=== PATIENT | female | born 1960 | race Caucasian/White ===

== ENCOUNTER 2018-04-27 10:45 | Outpatient (CLI) | payer OTHER ==
--- NOTE | 2018-04-27 12:42 | RAD ---
RADIOGRAPH SACRUM AND COCCYX THREE VIEWS: History: 58-year-old female with coccydynia. Comparison: None. FINDINGS: Sacral arcuate lines are preserved. No gross evidence of destruction or displaced sacrococcygeal frac ture identified. IMPRESSION: Negative. POS: [facility]
== END 2018-04-27 10:46 | disposition home or self-care (01) ==
LOC: RAD 10:45
PROVIDERS: ATTEND Nurse Practitioner Family
DX: M53.3 Sacrococcygeal disorders, not elsewhere classified (principal)
CPT/HCPCS: 72220

== ENCOUNTER 2018-12-23 14:34 | Emergency (ER) | payer OTHER ==
[2018-12-23] MEDS ORDERED: Ketorolac Tromethamine 30 MG/ML VIAL ONE (14:59)
[2018-12-23] MEDS ORDERED: Diazepam 5 MG TAB ONE (15:06)
== END 2018-12-23 15:56 | disposition home or self-care (01) ==
LOC: ERS 14:34
DX: M62.830 Muscle spasm of back (principal); I10 Essential (primary) hypertension; Z79.899 Other long term (current) drug therapy
CPT/HCPCS: 96372; 99283; J1885

== ENCOUNTER 2019-04-03 09:15 | Outpatient (CLI) | payer OTHER ==
--- NOTE | 2019-04-03 09:41 | RAD ---
EXAM: 3 views of the sacrum/coccyx HISTORY: Sacral/coccygeal pain COMPARISON: 04/27/2018 FINDINGS: 3 views of the sacrum/coccyx shows no evidence of displaced sacral or coccygeal fracture. T he sacral alae are symmetric. The sacroiliac joints and pubic symphysis are unremarkable. IMPRESSION: No evidence of sacral or coccygeal fracture.
--- NOTE | 2019-04-03 10:14 | RAD ---
EXAM: 2 views of the left knee HISTORY: Knee pain COMPARISON: None FINDINGS: No knee effusion is seen. There is no evidence of acute fracture or dislocation. No signifi cant degenerative changes are seen. No soft tissue swelling is present. IMPRESSION: No evidence of acute osseous abnormality.
== END 2019-04-03 09:16 | disposition home or self-care (01) ==
LOC: RAD 09:15
PROVIDERS: ATTEND Nurse Practitioner Family
DX: M25.562 Pain in left knee (principal); M53.3 Sacrococcygeal disorders, not elsewhere classified
CPT/HCPCS: 72220

== ENCOUNTER 2019-05-24 13:46 | Outpatient (CLI) | payer OTHER ==
--- NOTE | 2019-05-24 14:59 | MRI ---
EXAM: LEFT KNEE MRI WITHOUT IV CONTRAST: 05/24/19 HISTORY: Left knee pain without significant injury. Internal derangement of left knee. FINDINGS: There is some suprapatellar recess joint distention. Fairly extensive complex tear of the medial meni scus extending from the posterior root into the mid body region with prominent irregular vertical com ponent as well as a horizontal component. Mild to moderate medial compartment cartilage loss. There i s some medial subluxation of the body of the medial meniscus with some very subtle subchondral signal of the medial aspect of the medial tibial plateau, probably some very subtle stress related change. Lateral meniscus appears unremarkable. Anterior and posterior cruciate ligaments, collateral ligament complexes, and quadriceps and patellar tendons appear intact. IMPRESSION: Fairly extensive complex tear medial meniscus from the posterior root into the body. Evidence for sup rapatellar joint fluid. Small subchondral focus of minimal increased signal of the medial aspect of t he medial tibial plateau probably related to minimal stress related change. No evidence for other sig nificant acute internal derangement. POS: T[facility]
== END 2019-05-24 13:47 | disposition home or self-care (01) ==
LOC: TBSIIMAG 13:46
PROVIDERS: ATTEND Orthopaedic Surgery
DX: M23.92 Unspecified internal derangement of left knee (principal); S83.232A Complex tear of medial meniscus, current injury, left knee, initial encounter; R93.7 Abnormal findings on diagnostic imaging of other parts of musculoskeletal system

== ENCOUNTER 2019-07-05 10:39 | Outpatient (CLI) | payer OTHER ==
[2019-07-05 11:50] LABS: #Basophils 0.1 thou/uL (0.0-0.2); #Eosinphils 0.1 thou/uL (0.0-0.7); #Lymphocytes 1.5 thou/uL (1.20-3.40); #Monocytes 0.5 thou/uL (0.11-0.59); #Neutrophils 4.2 thou/uL (1.40-6.50); %Basophils 0.9 % (0.0-1.0); %Eosinophils 1.9 % (0.0-10.0); %Lymphocytes 23.7 % (21.0-51.0); %Monocytes 7.5 % (0.0-10.0); %Neutrophils 66.1 % (42.0-75.0); Mean Corpuscular HGB CONC 32.7 g/dL (32.0-36.0); Mean Corpuscular Hemoglobin 27.3 pg (27.0-31.0); Mean Corpuscular Volume 83.6 fL (78.0-98.0); Mean Platelet Volume 7.3 fL (7.4-10.4); Platelet Count 272 thou/uL (130-400); RBC Distribution Width 13.8 % (11.5-14.5); White Blood Cell (WBC) Count 6.4 thou/uL (4.8-10.8)
[2019-07-05 12:12] LABS: Anion Gap 12 mmol/L (10-20); BUN (Urea Nitrogen) 12 mg/dL (9.8-20.1); Calc. Creatinine Clearance 0 mL/min (70-130); Calcium 9.4 mg/dL (7.8-10.44); Carbon Dioxide 25 mmol/L (23-31); Chloride 108 mmol/L (98-107); Estimated GFR-MDRD 73; Glucose 86 mg/dL (80-115); Potassium 4.2 mmol/L (3.5-5.1); Sodium 141 mmol/L (136-145)
[2019-07-05 18:25] LABS: SARS-CoV-2 MS2 Positive; SARS-CoV-2 N Gene Negative; SARS-CoV-2 S Gene Negative; SARS-CoV-2 orf1ab Negative
== END 2019-07-05 10:40 | disposition home or self-care (01) ==
LOC: LABBT 10:39
PROVIDERS: ATTEND Orthopaedic Surgery
DX: Z01.812 Encounter for preprocedural laboratory examination (principal); Z11.59 Encounter for screening for other viral diseases; M23.92 Unspecified internal derangement of left knee
CPT/HCPCS: 80048; 85025; 87635; U0003

== ENCOUNTER 2019-07-10 05:51 | Day surgery (SDC) | payer OTHER ==
[2019-07-05 10:51] VITALS: BMI 30.9
--- NOTE | 2019-07-09 10:09 | HP ---
HISTORY OF PRESENT ILLNESS: The patient is a 59-year-old female with a several month history of left knee pain and popping, was seen to develop after helping her recover from total knee surgery. There is no specific injury. She had persistent symptoms despite restriction of activities and use of anti-inflammatory medications. PAST MEDICAL HISTORY: The patient is otherwise in good health. History of hypertension and chronic low back pain. CURRENT MEDICATIONS: Include, 1. Melatonin. 2. Iron. 3. Robaxin. 4. Tylenol. ALLERGIES: NO KNOWN ALLERGIES. FAMILY HISTORY: Otherwise unremarkable. SOCIAL HISTORY: Otherwise unremarkable. REVIEW OF SYSTEMS: Otherwise unremarkable. PHYSICAL EXAMINATION: GENERAL: Reveals a healthy female. HEENT: Unremarkable. NECK: Supple. CHEST: Clear. HEART: Regular rate and rhythm. ABDOMEN: Soft and nontender. PELVIC: Deferred. RECTAL: Deferred. BREASTS: Deferred. EXTREMITIES: Pertinent findings related to the left knee; there is slight puffiness. No definite effusion. There is normal alignment. There is tenderness over the medial joint line. There is pain with Paige's maneuver. Range of motion is 0 to 105 degrees. There is pain with further flexion. There is pain with Paige's maneuver. There is no definite crepitus. There is a slight left antalgic gait. Neurovascular exam is intact. DIAGNOSTIC STUDIES: X-rays of the left knee are normal. MRI scan of the left knee reveals a complex tear of the medial meniscus and mild degenerative changes. IMPRESSION: Internal derangement of the left knee with medial meniscal tear, possible component of degenerative joint disease. PLAN: Arthroscopy of left knee with partial medial meniscectomy and/or debridement and shaving. The nature of the surgery, length of recovery, and potential complications such as infection, loss of motion, incomplete relief, thromboembolic phenomenon, neurovascular injury, posttraumatic degenerative arthritis, recurrent tear, need for additional treatment or repeat surgery have been discussed in detail. Job ID: [id number]
[2019-07-10] MEDS ORDERED: Fentanyl 100 MCG/2 ML VIAL ONE (06:14)
[2019-07-10] MEDS ORDERED: Scopolamine 1.5 mg/72 hour Patch ONE (06:46)
--- NOTE | 2019-07-10 09:23 | OP ---
DATE OF PROCEDURE: 07/10/2019 ANESTHESIA: General. PREOPERATIVE DIAGNOSIS: Medial meniscal tear, left knee. POSTOPERATIVE DIAGNOSIS: Medial meniscal tear, left knee. PROCEDURE PERFORMED: Arthroscopy of left knee with partial medial meniscectomy. OPERATIVE FINDINGS: Examination under anesthesia revealed the knee to be stable. At arthroscopy, there was mild grade 1 and grade 2 chondromalacia of the patella, no areas needing shaving. There was grade 1 and grade 2 chondromalacia of the medial femoral condyle, but no significant areas needing shaving. There was a complex tear of the posterior horn of the medial meniscus, which extended into the meniscal root. ACL was intact. Lateral meniscus was intact. DESCRIPTION OF PROCEDURE: After satisfactory anesthesia was induced in supine position, the patient was placed in a leg crabtree and prepped and draped in routine manner. The left leg was elevated and exsanguinated with an Esmarch bandage and the tourniquet was inflated to 300 mmHg. Estela arthroscope was introduced through anterolateral portal, probed through anteromedial portal, and inflow and outflow accomplished through the scope using a [employer] arthroscopy pump. Arthroscopy was carried out and the above findings were noted. All findings were documented with video printer and hard copies were made. The posterior horn of the medial meniscus was debrided with use of basket forceps and motorized shaver. Essentially the whole posterior horn had to be removed. The remaining rim was saucerized and contoured to provide a smooth transition and the remaining mid and anterior horn were probed and found to be stable. The knee was then scoped through the anteromedial portal and all compartments visualized. No additional pathology found. The knee was copiously irrigated through the scope and all instruments were then withdrawn. A mixture of 30 mL of 0.5% plain Marcaine and 20 mL of 1% lidocaine with epinephrine was prepared and 20 mL injected into the knee joint and additional 10 mL injected about each portal site. The portal sites were closed with 3-0 nylon and a sterile bulky compressive dressing was applied. The tourniquet deflated after 24 minutes. The foot promptly pinked up. The patient was awakened and taken to the recovery room in stable condition. There were no apparent intraoperative complications. The estimated blood loss was negligible. The patient will be discharged home in satisfactory condition, instructed on ice elevation, given written wound care instructions and home exercise program by the Physical Therapy Department. The patient has Aurora 5 at home and tramadol at home for pain as well as ibuprofen use as necessary. She will be rechecked in my office in 10 to 14 days or sooner if there are any problems prior to that time. Job ID: [id number]
[2019-07-10] MEDS ORDERED: PROPOFOL 200 MG/20 ML VIAL ONE (09:35)
[2019-07-10] MEDS ORDERED: diphenhydrAMINE 50 MG/ML VIAL ONE (09:35)
[2019-07-10] MEDS ORDERED: Dexamethasone 20 MG/5 ML VIAL ONE (09:35)
[2019-07-10] MEDS ORDERED: Lidocaine 1% PF 5 ML VIAL ONE (09:35)
[2019-07-10] MEDS ORDERED: EPHEDRINE 25 MG/5 ML SYRINGE ONE (09:35)
[2019-07-10] MEDS ORDERED: Ondansetron PF 4 MG/2 ML Vial ONE (09:35)
--- NOTE | 2019-07-14 15:59 | EKG ---
Test Reason : PREOP Blood Pressure : / mmHG Vent. Rate : 087 BPM Atrial Rate : 087 BPM P-R Int : 156 ms QRS Dur : 092 ms QT Int : 382 ms P-R-T Axes : 056 009 069 degrees QTc Int : 459 ms Normal sinus rhythm Normal ECG No previous ECGs available Confirmed by BRANT BEATTY (2) on 07/14/2019 3:59:05 PM Referred By: AYAN Confirmed By:BRANT BEATTY
== END 2019-07-10 10:45 | disposition home or self-care (01) ==
LOC: SDC 05:51
PROVIDERS: ATTEND Orthopaedic Surgery
PROC: 0SBD4ZZ Excision of Left Knee Joint, Percutaneous Endoscopic Approach (ICD-10-PCS; principal; 2019-07-10)
DX: S83.242A Other tear of medial meniscus, current injury, left knee, initial encounter (principal); M22.42 Chondromalacia patellae, left knee; I10 Essential (primary) hypertension; Z79.899 Other long term (current) drug therapy
CPT/HCPCS: 93005; 93010; J0690; J1100; J1200; J2001; J2405; J2704; J3010

== ENCOUNTER 2019-11-13 14:44 | Outpatient (CLI) | payer OTHER ==
--- NOTE | 2019-11-13 15:32 | BD ---
EXAM: Bone densitometry using DEXA HISTORY: 59 yo female. Screening for postmenopausal osteoporosis FINDINGS: L1--bone mineral density 1.243 g/sq cm; T score 2.3 ; Z score 3.7 L2--bone mineral density 1.338 g/sq cm; T score 2.8 ; Z score 4.3 L3--bone mineral density 1.315 g/sq cm; T score 2.1 ; Z score 3.7 L4--bone mineral density 1.207 g/sq cm; T score 1.3 ; Z score 3.0 Total L1-L4--bone mineral density 1.271 g/sq cm; T score 2.0 ; Z score 3.6 Left femoral neck--bone mineral density1.211; T score 3.3 ; Z score 4.6 Total proximal left femur--bone mineral density 1.211; T score 3.3 ; Z score 4.6 IMPRESSION: Normal BMD
--- NOTE | 2019-11-14 08:50 | MMO ---
Bilateral MAMMO Bilat Screen [facility]. CLINICAL HISTORY: Patient is 59 years old and is seen for screening. The patient has no family history of breast cancer. The patient has no personal history of cancer. The patient has a history of left Ultrasound Guided Core Biopsy in 2014 - fibroadenoma. VIEWS: The views performed were: bilateral craniocaudal with tomosynthesis and bilateral mediolateral oblique with tomosynthesis. FILMS COMPARED: The present examination has been compared to prior imaging studies performed at [facility] on 12/22/2015 and 08/23/2017. This study has been interpreted with the assistance of computer-aided detection. MAMMOGRAM FINDINGS: There are scattered fibroglandular densities. Benign calcifications are noted bilaterally. THE OVAL MASS IN THE LEFT BREAST IS AGAIN SEEN (BIOPSY PROVEN FIBROADENOMA IN 2013) There are no suspicious masses, suspicious calcifications, or new areas of architectural distortion. IMPRESSION: THERE IS NO MAMMOGRAPHIC EVIDENCE OF MALIGNANCY. A ROUTINE FOLLOW-UP MAMMOGRAM IN 1 YEAR IS RECOMMENDED. THE RESULTS OF THIS EXAM WERE SENT TO THE PATIENT. ACR BI-RADS Category 2 - Benign finding MAMMOGRAPHY NOTE: 1. A negative mammogram report should not delay a biopsy if a dominant of clinically suspicious mass is present. 2. Approximately 10% to 15% of breast cancers are not detected by mammography. 3. Adenosis and dense breasts may obscure an underlying neoplasm. Reported by: CAPO RAMEY MD Electonically Signed: [id number]
== END 2019-11-13 14:45 | disposition home or self-care (01) ==
LOC: BICMAMMO 14:44
PROVIDERS: ATTEND Family Medicine
DX: Z12.31 Encounter for screening mammogram for malignant neoplasm of breast (principal); Z78.0 Asymptomatic menopausal state; Z85.3 Personal history of malignant neoplasm of breast
CPT/HCPCS: 77063; 77067; 77080

== ENCOUNTER 2020-11-10 10:06 | Outpatient (CLI) | payer OTHER ==
[2020-11-11 01:01] LABS: SARS-CoV-2 PCR by NAA Not Detected (NotDetected)
== END 2020-11-10 10:07 | disposition home or self-care (01) ==
LOC: LABBT 10:06
PROVIDERS: ATTEND Neurological Surgery
DX: Z01.812 Encounter for preprocedural laboratory examination (principal); Z20.822 Contact with and (suspected) exposure to COVID-19
CPT/HCPCS: U0003; U0005

== ENCOUNTER 2020-11-13 08:17 | Day surgery (SDC) | payer OTHER ==
[2020-11-12 11:15] VITALS: BMI 31.7
[2020-11-13] MEDS ORDERED: Midazolam HCl 2 mg/2 ml Vial ONE (08:30)
[2020-11-13] MEDS ORDERED: Fentanyl 100 MCG/2 ML VIAL ONE (09:01)
[2020-11-13] MEDS ORDERED: Lidocaine 1% PF 5 ML VIAL ONE (09:30)
[2020-11-13] MEDS ORDERED: Ondansetron PF 4 MG/2 ML Vial ONE (09:30)
[2020-11-13] MEDS ORDERED: PROPOFOL 200 MG/20 ML VIAL ONE (09:30)
[2020-11-13] MEDS ORDERED: Dexamethasone 20 MG/5 ML VIAL ONE (09:30)
[2020-11-13] MEDS ORDERED: Magnevist 469MG/ML 20 ML VIAL ONE ×2 (11:36)
== END 2020-11-13 12:30 | disposition home or self-care (01) ==
LOC: SDC 08:17 → EDSTATUS 12:00 → SDC 12:30
PROVIDERS: ATTEND Neurological Surgery
DX: M47.24 Other spondylosis with radiculopathy, thoracic region (principal); M47.816 Spondylosis without myelopathy or radiculopathy, lumbar region; M54.5 Low back pain; I10 Essential (primary) hypertension; E78.5 Hyperlipidemia, unspecified; F40.240 Claustrophobia; Z79.899 Other long term (current) drug therapy; Z88.0 Allergy status to penicillin
CPT/HCPCS: 72157; 72158; A9579; J1100; J2250; J2405; J2704; J3010

== ENCOUNTER 2020-11-27 14:22 | Outpatient (CLI) | payer OTHER | END 2020-11-27 14:23 | disposition home or self-care (01) | LOC: BICMAMMO 14:22 | PROVIDERS: ATTEND Family Medicine | DX: Z12.31 Encounter for screening mammogram for malignant neoplasm of breast (principal) | CPT/HCPCS: 77063; 77067 ==

== ENCOUNTER 2021-01-07 11:22 | Outpatient (CLI) | payer OTHER ==
[2021-01-07 12:16] LABS: Bilirubin Neg (Negative); Blood, Urine Negative (Negative); Clarity Clear (Clear); Glucose, Urine (Dipstick) Normal (Negative); Ketone, Urine Negative (Negative); Leukocyte Negative (Negative); Nitrite Negative (Negative); Protein, Urine (Dipstick) Negative (Neg-Trace); Urobilinogen Normal mg/dL (Less than 2)
[2021-01-07 13:04] LABS: INR-International Normal Ratio 0.9; Prothrombin Time 10.3 sec (9.5-12.1)
[2021-01-07 13:06] LABS: Anion Gap 16 mmol/L (10-20); BUN (Urea Nitrogen) 16 mg/dL (9.8-20.1); Calc. Creatinine Clearance 0 mL/min (70-130); Carbon Dioxide 22 mmol/L (23-31); Chloride 108 mmol/L (98-107); Glucose 97 mg/dL (80-115); Potassium 4.5 mmol/L (3.5-5.1); Sodium 141 mmol/L (136-145)
[2021-01-07 13:44] LABS: #Basophils 0.1 10x3/uL (0.0-0.2); #Eosinphils 0.2 10x3/uL (0.0-0.5); #Monocytes 0.7 10x3/uL (0.0-1.1); #Neutrophils 6.7 10x3/uL (1.5-8.4); %Basophils 0.8 % (0.0-2.0); %Eosinophils 1.6 % (0.0-6.0); %Lymphocytes 18.8 % (18.0-47.0); %Monocytes 7.5 % (0.0-10.0); %Neutrophils 70.7 % (40.0-75.0); Hemoglobin 8.3 g/dL (12.0-15.5); Mean Corpuscular HGB CONC 26.5 g/dL (32.0-36.0); Mean Corpuscular Hemoglobin 16.6 pg (27.0-33.0); Mean Corpuscular Volume 62.7 fl (81.6-98.3); Mean Platelet Volume 9.6 fl (7.4-10.4); Platelet Count 361 10x3/uL (150-450); RBC Distribution Width 19.9 % (11.5-14.5); Red Blood Cell (RBC) Count 4.99 10x6/uL (3.90-5.03); White Blood Cell (WBC) Count 9.5 10x3/uL (3.5-10.5)
[2021-01-07 13:50] LABS: Hypochromia SLIGHT = 6-15 cells (100X) (0-5/hpf); Microcytosis MODERATE=15-30 cells (100X) (0-5/hpf); Polychromasia SLIGHT = 2-3 cells (100X) (0-2/hpf)
[2021-01-07 13:51] LABS: Ovalocytes SLIGHT = 2-5 cells (100X) (0-1/hpf)
[2021-01-07 13:52] LABS: Platelet Morphology Comment Appears Adequate; Reflex for Review?? YES
[2021-01-08 08:47] LABS: SARS-CoV-2 PCR by NAA Not Detected (NotDetected)
== END 2021-01-07 11:23 | disposition home or self-care (01) ==
LOC: LABBT 11:22
PROVIDERS: ATTEND Orthopaedic Surgery
DX: Z01.818 Encounter for other preprocedural examination (principal); M17.12 Unilateral primary osteoarthritis, left knee; Z20.822 Contact with and (suspected) exposure to COVID-19
CPT/HCPCS: 80048; 81003; 85025; 85060; 85610; 87081; 93005; 93010; U0003; U0005

== ENCOUNTER 2021-01-12 08:00 | Inpatient (IN) | payer OTHER ==
[2021-01-11 11:12] VITALS: BMI 31.7
[2021-01-12] MEDS ORDERED: Tranexamic Acid 1,000 MG/10 ML VIAL ONE (09:54)
[2021-01-12] MEDS ORDERED: Sodium Chloride 0.9% 100 ML ONE (09:55)
[2021-01-12] MEDS ORDERED: Vancomycin HCl 1.5 GM in Sodium Chloride 0.9% 250 ML 300 ML IVPB SCH ×2 (10:00→22:00)
[2021-01-12] MEDS ORDERED: Midazolam HCl 2 mg/2 ml Vial ONE (10:24)
[2021-01-12] MEDS ORDERED: Fentanyl 100 MCG/2 ML VIAL ONE ×5 (10:24→14:12)
[2021-01-12] MEDS ORDERED: Lidocaine 1% (PF) 30 ML VIAL ONE (10:35)
[2021-01-12] MEDS ORDERED: Bupivacaine HCl 0.5%/Epinephrine 1:200,000/PF 30 ml Vial ONE (10:47)
[2021-01-12] MEDS ORDERED: traMADol HCl 50 MG TAB PO PRN ×2 (11:24→11:30)
[2021-01-12] MEDS ORDERED: diphenhydrAMINE 25 MG CAP PO PRN (11:24)
[2021-01-12] MEDS ORDERED: Promethazine HCl 25 MG/ML VIAL IM PRN ×3 (11:24→13:18)
[2021-01-12] MEDS ORDERED: Acetaminophen 325 MG TAB PO PRN (11:24)
[2021-01-12] MEDS ORDERED: Ondansetron PF 4 MG/2 ML Vial IVP PRN ×2 (11:24→11:30)
[2021-01-12] MEDS ORDERED: HYDROcodone/Acetaminophen 10/325 mg Tablet PO PRN ×4 (11:24→11:30)
[2021-01-12] MEDS ORDERED: Zolpidem Tartrate 5 MG TAB PO PRN ×2 (11:24→11:30)
[2021-01-12] MEDS ORDERED: Fentanyl 100 MCG/2 ML VIAL SLOW IVP PRN ×2 (11:24)
[2021-01-12] MEDS ORDERED: Acetaminophen ER (8hr) 650 MG TAB PO PRN (11:25)
[2021-01-12] MEDS ORDERED: Fentanyl 100 MCG/2 ML VIAL IV PRN (11:28)
[2021-01-12] MEDS ORDERED: Ropivacaine 0.2% 550 ML 550 ML NERVE BLCK SCH (11:30)
[2021-01-12] MEDS ORDERED: Famotidine/PF 20 mg/2ml Vial ONE (11:40)
[2021-01-12] MEDS ORDERED: PROPOFOL 200 MG/20 ML VIAL ONE (11:48)
[2021-01-12] MEDS ORDERED: Lidocaine 1% PF 5 ML VIAL ONE (11:48)
[2021-01-12] MEDS ORDERED: Ketorolac Tromethamine 30 MG/ML VIAL ONE (11:48)
[2021-01-12] MEDS ORDERED: Dexamethasone 20 MG/5 ML VIAL ONE (11:48)
[2021-01-12] MEDS ORDERED: Ondansetron PF 4 MG/2 ML Vial ONE (11:48)
[2021-01-12] MEDS ORDERED: PACU-Morphine 4MG/ML VIAL SLOW IVP PRN (13:18)
[2021-01-12] MEDS ORDERED: Promethazine HCl 25 MG/ML VIAL IVPB PRN (13:18)
[2021-01-12] MEDS ORDERED: Morphine 4 MG/ML VIAL ONE (14:35)
[2021-01-12] MEDS ORDERED: Promethazine HCl 25 MG/ML VIAL ONE (15:19)
[2021-01-12] MEDS: Sodium Chloride 0.9% 1,000 ML IV SCH ×2 (18:37→21:52)
[2021-01-12] MEDS: Atorvastatin Calcium 10 MG TAB PO SCH (21:23)
[2021-01-12] MEDS: Aspirin 81 mg Enteric Coated Tablet PO SCH (21:23)
[2021-01-12] MEDS: Losartan 25 MG TAB PO SCH (21:23)
[2021-01-12] MEDS: traMADol HCl 50 MG TAB PO PRN (23:42)
[2021-01-13 06:26] LABS: Hemoglobin 7.1 g/dL (12.0-16.0); Mean Corpuscular Hemoglobin 17.4 pg (27.0-31.0); Mean Corpuscular Volume 58.2 fL (78.0-98.0); Mean Platelet Volume 5.4 fL (7.4-10.4); Platelet Count 239 thou/uL (130-400); RBC Distribution Width 19.4 % (11.5-14.5); Red Blood Cell (RBC) Count 4.09 mill/uL (4.20-5.40); White Blood Cell (WBC) Count 8.2 thou/uL (4.8-10.8)
[2021-01-13] MEDS: traMADol HCl 50 MG TAB PO PRN ×2 (06:26→15:44)
[2021-01-13] MEDS: Aspirin 81 mg Enteric Coated Tablet PO SCH ×2 (08:06→20:06)
[2021-01-13] MEDS: Multivitamin W/ Minerals 1 TAB PO SCH (08:06)
[2021-01-13] MEDS: CeleCOXIB 100 MG CAP PO SCH (08:06)
[2021-01-13] MEDS: Senokot S 8.6-50 MG TAB PO SCH ×2 (08:07→20:06)
[2021-01-13] MEDS: Ferrous Gluconate 324 MG TAB PO SCH ×2 (08:07→20:07)
[2021-01-13] MEDS: Sodium Chloride 0.9% 1,000 ML IV SCH ×2 (08:21→17:50)
[2021-01-13] MEDS: Atorvastatin Calcium 10 MG TAB PO SCH (20:06)
[2021-01-13] MEDS: Losartan 25 MG TAB PO SCH (20:07)
[2021-01-14] MEDS: traMADol HCl 50 MG TAB PO PRN (03:30)
[2021-01-14] MEDS: Sodium Chloride 0.9% 1,000 ML IV SCH ×3 (03:30→20:37)
[2021-01-14 06:43] LABS: Iron 14 ug/dL (50-170); Iron Binding Capacity, Total 380 mcg/dL (265-497)
[2021-01-14 07:08] LABS: Ferritin 19.75 ng/mL (10-291)
[2021-01-14 07:20] LABS: Mean Corpuscular Hemoglobin 19.8 pg (27.0-31.0); Mean Corpuscular Volume 61.9 fL (78.0-98.0); Mean Platelet Volume 5.7 fL (7.4-10.4); Platelet Count 249 thou/uL (130-400); RBC Distribution Width 24.4 % (11.5-14.5); Red Blood Cell (RBC) Count 4.53 mill/uL (4.20-5.40); White Blood Cell (WBC) Count 10.9 thou/uL (4.8-10.8)
[2021-01-14 08:54] LABS: #Eosinphils 0.1 thou/uL (0.0-0.7); #Lymphocytes 1.1 thou/uL (1.20-3.40); #Neutrophils 8.8 thou/uL (1.40-6.50); %Basophils 0.1 % (0.0-1.0); %Eosinophils 0.5 % (0.0-10.0); %Monocytes 8.7 % (0.0-10.0); %Neutrophils 80.7 % (42.0-75.0); Elliptocytes SLIGHT = 2-5 cells (100X) (0-1/hpf); Hypochromia SLIGHT = 6-15 cells (100X) (0-5/hpf); MDiff Complete? YES; Microcytosis MODERATE=15-30 cells (100X) (0-5/hpf); Ovalocytes SLIGHT = 2-5 cells (100X) (0-1/hpf); Platelet Morphology Comment Appears Adequate; Polychromasia SLIGHT = 2-3 cells (100X) (0-2/hpf)
[2021-01-14] MEDS: Senokot S 8.6-50 MG TAB PO SCH ×2 (09:27→20:35)
[2021-01-14] MEDS: Aspirin 81 mg Enteric Coated Tablet PO SCH ×2 (09:27→20:35)
[2021-01-14] MEDS: Ferrous Gluconate 324 MG TAB PO SCH ×2 (09:28→20:37)
[2021-01-14] MEDS: CeleCOXIB 100 MG CAP PO SCH (09:28)
[2021-01-14] MEDS: Multivitamin W/ Minerals 1 TAB PO SCH (09:28)
[2021-01-14] MEDS: HYDROcodone/Acetaminophen 10/325 mg Tablet PO PRN ×2 (15:13→20:36)
[2021-01-14] MEDS: Losartan 25 MG TAB PO SCH (20:35)
[2021-01-14] MEDS: Atorvastatin Calcium 10 MG TAB PO SCH (20:37)
[2021-01-15] MEDS: HYDROcodone/Acetaminophen 10/325 mg Tablet PO PRN ×2 (05:00→13:29)
[2021-01-15 05:58] LABS: #Basophils 0.1 thou/uL (0.0-0.2); #Eosinphils 0.3 thou/uL (0.0-0.7); #Lymphocytes 1.1 thou/uL (1.20-3.40); #Monocytes 0.8 thou/uL (0.11-0.59); #Neutrophils 6.8 thou/uL (1.40-6.50); %Basophils 0.6 % (0.0-1.0); %Eosinophils 2.8 % (0.0-10.0); %Lymphocytes 12.6 % (21.0-51.0); %Monocytes 8.7 % (0.0-10.0); %Neutrophils 75.3 % (42.0-75.0); Hemoglobin 8.1 g/dL (12.0-16.0); Mean Corpuscular HGB CONC 30.4 g/dL (32.0-36.0); Mean Corpuscular Hemoglobin 18.9 pg (27.0-31.0); Mean Platelet Volume 5.3 fL (7.4-10.4); Platelet Count 259 thou/uL (130-400); RBC Distribution Width 24.7 % (11.5-14.5); Red Blood Cell (RBC) Count 4.28 mill/uL (4.20-5.40)
[2021-01-15 06:17] LABS: Anion Gap 12 mmol/L (10-20); BUN (Urea Nitrogen) 9 mg/dL (9.8-20.1); Calc. Creatinine Clearance 117 mL/min (70-130); Calcium 8.8 mg/dL (7.8-10.44); Carbon Dioxide 26 mmol/L (23-31); Chloride 104 mmol/L (98-107); Glucose 123 mg/dL (80-115); Potassium 3.5 mmol/L (3.5-5.1); Sodium 138 mmol/L (136-145)
[2021-01-15] MEDS: Sodium Chloride 0.9% 1,000 ML IV SCH (08:50)
[2021-01-15] MEDS: Aspirin 81 mg Enteric Coated Tablet PO SCH (09:06)
[2021-01-15] MEDS: CeleCOXIB 100 MG CAP PO SCH (09:07)
[2021-01-15] MEDS: Multivitamin W/ Minerals 1 TAB PO SCH (09:08)
[2021-01-15] MEDS: Senokot S 8.6-50 MG TAB PO SCH (09:08)
[2021-01-15] MEDS: Ferrous Gluconate 324 MG TAB PO SCH (09:08)
[2021-01-15 15:57] VITALS: BP 149/92; TEMP 98.1
== END 2021-01-15 13:32 | disposition home or self-care (01) | DRG 470 ==
LOC: SDC 08:00 → SJJU 11:24 → SDC 01-13 10:35 → OBSVTOIN 01-13 14:40
PROVIDERS: ADMIT Orthopaedic Surgery; ATTEND Nurse Practitioner Family
PROC: 0SRD0J9 Replacement of Left Knee Joint with Synthetic Substitute, Cemented, Open Approach (ICD-10-PCS; principal; 2021-01-13)
PROC: 30233N1 Transfusion of Nonautologous Red Blood Cells into Peripheral Vein, Percutaneous Approach (ICD-10-PCS; 2021-01-13)
DX: M17.12 Unilateral primary osteoarthritis, left knee (principal); I10 Essential (primary) hypertension; R22.33 Localized swelling, mass and lump, upper limb, bilateral; M62.830 Muscle spasm of back; D50.9 Iron deficiency anemia, unspecified; E78.00 Pure hypercholesterolemia, unspecified; Z88.0 Allergy status to penicillin; Z79.899 Other long term (current) drug therapy
CPT/HCPCS: 36415; 36430; 80048; 82607; 82728; 83540; 83550; 85027; 86850; 86900; 86901; A4306; C1713; J0690; J1100; J1885; J1956; J2001; J2250; J2270; J2405; J2550; J2704; J2795; J3010; J3370; J3490; J7050; P9016; S0028

== ENCOUNTER 2021-02-02 13:42 | Outpatient (CLI) | payer OTHER | END 2021-02-02 13:43 | disposition home or self-care (01) | LOC: BICULT 13:42 | PROVIDERS: ATTEND Family Medicine | DX: R22.33 Localized swelling, mass and lump, upper limb, bilateral (principal) | CPT/HCPCS: 76999 ==

== ENCOUNTER 2023-01-09 08:12 | Outpatient (CLI) | payer MEDICARE, OTHER | END 2023-01-09 08:13 | disposition home or self-care (01) | LOC: BICMAMMO 08:12 | PROVIDERS: ATTEND Family Medicine | DX: Z12.31 Encounter for screening mammogram for malignant neoplasm of breast (principal); Z80.3 Family history of malignant neoplasm of breast | CPT/HCPCS: 77063; 77067 ==

== ENCOUNTER 2024-01-12 11:37 | Outpatient (CLI) | payer MEDICARE, OTHER | END 2024-01-12 11:38 | disposition home or self-care (01) | LOC: BICRAD 11:37 | PROVIDERS: ATTEND Family Medicine | DX: M54.50 Low back pain, unspecified (principal); M47.816 Spondylosis without myelopathy or radiculopathy, lumbar region; M48.07 Spinal stenosis, lumbosacral region | CPT/HCPCS: 72100 ==

== ENCOUNTER 2024-01-23 14:51 | Outpatient (CLI) | payer MEDICARE, OTHER | END 2024-01-23 14:52 | disposition home or self-care (01) | LOC: BICMAMMO 14:51 | PROVIDERS: ATTEND Family Medicine | DX: Z12.31 Encounter for screening mammogram for malignant neoplasm of breast (principal); Z80.3 Family history of malignant neoplasm of breast | CPT/HCPCS: 77063; 77067 ==

== ENCOUNTER 2025-01-23 08:17 | Outpatient (CLI) | payer MEDICARE, OTHER | END 2025-01-23 08:18 | disposition home or self-care (01) | LOC: BICMAMMO 08:17 | PROVIDERS: ATTEND Family Medicine | DX: Z12.31 Encounter for screening mammogram for malignant neoplasm of breast (principal); Z80.3 Family history of malignant neoplasm of breast | CPT/HCPCS: 77063; 77067 ==